=== PATIENT | male | born 1995 | race Two or more races ===

== ENCOUNTER 2022-02-27 01:24 | Emergency (ER) | payer SELFPAY | END 2022-02-27 01:47 | LOC: MW.ED 01:24 | DX: F10.129 Alcohol abuse with intoxication, unspecified (principal) | CPT/HCPCS: 99282; 99283 ==

== ENCOUNTER 2022-03-13 05:22 | Emergency (ER) | payer SELFPAY | END 2022-03-13 05:30 | disposition left against medical advice (07) | LOC: MW.ED 05:22 | DX: Z53.21 Procedure and treatment not carried out due to patient leaving prior to being seen by health care provider (principal) ==

== ENCOUNTER 2022-03-13 12:19 | Emergency (ER) | payer OTHER ==
[2022-03-13 14:54] LABS: ACETAMINOPHEN <2.0 ug/mL; BLOOD UREA NITROGEN,BUN 12 mg/dL (7.0-18.0); CHLORIDE,CL 103 mmol/L (98-107); GLUCOSE RANDOM 98 mg/dL (74-106); POTASSIUM,K 3.8 mmol/L (3.5-5.1); SODIUM,NA 140 mmol/L (136-148)
[2022-03-13 14:57] LABS: ESTIMATED GFR 94 mL/min (>60)
== END 2022-03-13 16:10 ==
LOC: MW.ED 12:19
DX: Z00.00 Encounter for general adult medical examination without abnormal findings (principal); R45.851 Suicidal ideations; Z20.822 Contact with and (suspected) exposure to COVID-19
CPT/HCPCS: 36415; 80053; 80143; 80179; 80305-QW; 80307; 81001; 83735; 84443; 85025; 93005; 93010; 99285; U0002

== ENCOUNTER 2022-05-15 09:15 | Emergency (ER) | payer SELFPAY ==
[2022-05-15] MEDS ORDERED: Lisinopril 10 MG Tab PO ONE (10:03)
[2022-05-15 11:21] LABS: POTASSIUM,K 3.4 mmol/L (3.5-5.1)
== END 2022-05-15 11:51 ==
LOC: MW.ED 09:15
DX: I10 Essential (primary) hypertension (principal); Z79.899 Other long term (current) drug therapy
CPT/HCPCS: 36415; 80048; 83735; 84484; 85025; 93005; 99283; A9270; 93010

== ENCOUNTER 2022-08-18 00:10 | Emergency (ER) | payer SELFPAY | END 2022-08-18 00:20 | LOC: MW.ED 00:10 | DX: Z02.89 Encounter for other administrative examinations (principal); I10 Essential (primary) hypertension; Z79.899 Other long term (current) drug therapy | CPT/HCPCS: 99283 ==